=== PATIENT | female | born 1945 | race Asian ===

== ENCOUNTER 2016-08-29 05:44 | Day surgery (SDC) | payer MEDICAID ==
[~2016-08-29] VITALS: Ht 167.6 cm; Wt 68.2 kg
[~2016-08-29 05:44] MED LIST: LOSA50TA37 PO; PROP50TA3 PO; SODIUM CHLORIDE 0.9% 1,000 ML IV ONE
[2016-08-29] MEDS ORDERED: SODIUM CHLORIDE 0.9% 1,000 ML IV ONE (05:50)
[2016-08-29] MEDS ORDERED: MIDAZOLAM HCL 5 MG/ML VIAL ONE (07:08)
[2016-08-29] MEDS ORDERED: FentaNYL CITRATE-PF 100 MCG/2 ML VIAL ONE (07:08)
[2016-08-29] MEDS ORDERED: OXYGEN THERAPY IH SCH (08:00)
[2016-08-29] MEDS ORDERED: PROPOFOL 1% 20 ML VIAL IVP ONE (22:53)
== END 2016-08-29 09:25 | disposition home or self-care (01) ==
LOC: SURGERY 05:44
PROVIDERS: ATTEND Specialist
DX: K63.5 Polyp of colon (principal); K57.90 Diverticulosis of intestine, part unspecified, without perforation or abscess without bleeding; K64.4 Residual hemorrhoidal skin tags; I10 Essential (primary) hypertension
CPT/HCPCS: 45385; 93005; C1769; J2250; J2704; J3010; J7030; 88305